=== PATIENT | female | born 1960 | race Caucasian/White ===

== ENCOUNTER 2017-01-29 15:58 | Emergency (ER) | payer SELFPAY ==
[~2017-01-29] VITALS: Ht 172.7 cm; Wt 74.8 kg
[2017-01-29] MEDS ORDERED: RT-ALBUTEROL SULF 2.5 MG/3 ML PRE-MIX VIAL ONE (16:02)
[2017-01-29] MEDS ORDERED: RT-ALBUTEROL/IPRATROPIUM 3 ML (DUONEB) VIAL ONE (16:02)
[2017-01-29] MEDS ORDERED: NS IV 1000 ML 1,000 ML IV ONE ×2 (16:13→16:51)
--- NOTE | 2017-01-29 16:13 | ED Neurological Problem ---
General Stated Complaint: UNRESPONSIVE Source: patient, EMS Exam Limitations: clinical condition (HÉCTOR FISHMAN) History of Present Illness Time seen by provider: 15:59 Initial Comments Patient presents to ER by EMS with a chief complaint that she was found down by family. Last time she was in contact with family was approximately 2130 yesterday by text message. She did not come to work this morning at 8:00 so the local law enforcement was called to do a welfare check on her. When EMS arrived they said the patient was down on the floor beside her bed with a lot of family in commotion in the house so they scooped her up and took her up some more related work on her. They were told by family that they thought she might of overdosed on some of her medications possibly include trazodone. They gave her 2 mg Narcan with no response. Her blood pressure was in the 80 systolic and heart rate in the 60s and satting in the upper 80s so they are aside her with rocuronium and Versed. They tried putting on oral pharyngeal airway and but the patient was biting down hard. EMS reported her pupils were pinpoint and fixed and she was not responding to painful stimuli. They've got 1 L of normal saline put in her and her blood pressure is 100 systolic now and her sats are 100% with a heart rate of 70s to 80s. Discussed the case with the family and the sons, brother and 3 sisters present who stated the patient had a lot of problems with depression and has a gambling disorder which has landed her in a great deal of that. She has relied on her family to be billed up multiple times and because of this this is lead to an argument about money which led to a lawsuit against one of her sisters. The patient has talked off and on about suicide for the past year according to the sisters. They have try to get her help but she is been resistant. They deny that she has recently been acting sick with any fevers chills or productive cough. She does smoke about 1 and a half packs of cigarettes a day. (HÉCTOR FISHMAN) Allergies and Home Medications Allergies Coded Allergies: Penicillins (Verified Allergy, Unknown, 01/29/17) Constitutional: see HPI (unable to obtain a meaningful review of systems secondary to the patient being orotracheally intubated) (HÉCTOR FISHMAN) Past Ixizlhh-Gyumzn-Tafdpr Hx Patient Social History Smoking Status: Current Everyday Smoker Type Used: Cigarettes (1.5 ppd) Recent Foreign Travel: No Contact w/Someone Who Travel: No (HÉCTOR FISHMAN) Physical Exam Vital Signs Vital Sign - Last 12Hours 01/29/17 01/29/17 01/29/17 16:15 16:24 17:40 Temp 96.1 Pulse 93 Resp 15 B/P (MAP) 75/58 Pulse Ox 100 O2 Delivery Mechanical Ventilator FiO2 100 (DARIN ALVARENGA APRN) Vital Signs Capillary Refill : (HÉCTOR FISHMAN) General Appearance: severe distress (orotracheally intubated and ventilated and nonresponsive to even noxious stimuli.) HEENT: PERRL/EOMI, normal ENT inspection, TMs normal, pharynx normal (ET tube at 22 cm at the teeth) Neck: non-tender, supple, normal inspection Respiratory: other (she has a lot of wheezing bilaterally and no breathing over the vent. Since settings are 12 breaths per minute, 400 mL tidal volume, PEEP of 5, FiO2 of 70%.) Cardiovascular: normal peripheral pulses, regular rate, rhythm, no edema, no murmur Peripheral Pulses: 1+ Dorsalis Pedis (R), 1+ Left Dors-Pedis (L), 1+ Radial Pulses (R), 1+ Radial Pulses (L) Gastrointestinal: normal bowel sounds, soft, no organomegaly Extremities: normal inspection, no pedal edema, normal capillary refill Neurologic/Psychiatric: other (Sada Coma Scale 3T) Skin: normal color, warm/dry (HÉCTOR FISHMAN) Focused Exam Evaluation Lactate Level Laboratory Tests 01/29/17 17:20: Lactic Acid Level 3.98*H (DARIN ALVARENGA APRN) Time of Focused Exam: 19:34 Respiratory: No Accessory Muscle Use (orotracheally intubated at 16 rate with tidal volume of 550 cc and a PEEP of 7 cm water pressure), Rhonci (bilateral) Cardiovascular: Regular Rate, Rhythm, No Edema, No Murmur Capillary Refill: Less Than 3 Seconds Peripheral Pulses: 2+ Dorsalis Pedis (R), 2+ Left Dors-Pedis (L), 2+ Radial Pulses (R), 2+ Radial Pulses (L) Skin: normal color, warm/dry (HÉCTOR FISHMAN) Lactic Acid Level Laboratory Tests Test 01/29/17 17:20 Lactic Acid Level 3.98 MMOL/L (0.50-2.00) *H (DARIN ALVARENGA APRN) Progress/Results/Core Measures Results/Orders Lab Results Laboratory Tests Test 01/29/17 16:07 01/29/17 16:17 01/29/17 16:50 01/29/17 17:20 Range/Units White Blood Count 13.4 H 4.3-11.0 10^3/uL Red Blood Count 4.25 L 4.35-5.85 10^6/uL Hemoglobin 13.3 11.5-16.0 G/DL Hematocrit 42 35-52 % Mean Corpuscular Volume 99 80-99 FL Mean Corpuscular Hemoglobin 31 25-34 PG Mean Corpuscular Hemoglobin Concent 32 32-36 G/DL Red Cell Distribution Width 13.8 10.0-14.5 % Platelet Count 325 130-400 10^3/uL Mean Platelet Volume 8.8 7.4-10.4 FL Neutrophils (%) (Auto) 81 H 42-75 % Lymphocytes (%) (Auto) 12 12-44 % Monocytes (%) (Auto) 7 0-12 % Eosinophils (%) (Auto) 0 0-10 % Basophils (%) (Auto) 0 0-10 % Neutrophils # (Auto) 10.9 H 1.8-7.8 X 10^3 Lymphocytes # (Auto) 1.6 1.0-4.0 X 10^3 Monocytes # (Auto) 0.9 0.0-1.0 X 10^3 Eosinophils # (Auto) 0.0 0.0-0.3 10^3/uL Basophils # (Auto) 0.0 0.0-0.1 10^3/uL Prothrombin Time 13.5 12.2-14.7 SEC INR Comment 1.0 0.8-1.4 Activated Partial Thromboplast Time 27 24-35 SEC D-Dimer 0.71 H 0.00-0.49 UG/ML Sodium Level 140 135-145 MMOL/L Potassium Level 4.6 3.6-5.0 MMOL/L Chloride Level 103 98-107 MMOL/L Carbon Dioxide Level 26 21-32 MMOL/L Anion Gap 11 5-14 MMOL/L Blood Urea Nitrogen 17 7-18 MG/DL Creatinine 2.05 H 0.60-1.30 MG/DL Estimat Glomerular Filtration Rate 25 BUN/Creatinine Ratio 8 Glucose Level 138 H 70-105 MG/DL Calcium Level 8.4 L 8.5-10.1 MG/DL Phosphorus Level 9.6 H 2.3-4.7 MG/DL Magnesium Level 2.4 1.8-2.4 MG/DL Total Bilirubin 0.3 0.1-1.0 MG/DL Aspartate Amino Transf (AST/SGOT) 128 H 5-34 U/L Alanine Aminotransferase (ALT/SGPT) 68 H 0-55 U/L Alkaline Phosphatase 73 40-136 U/L Ammonia 20 11-32 UMOL/L Troponin I < 0.30 <0.30 NG/ML Total Protein 6.9 6.4-8.2 GM/DL Albumin 4.2 3.2-4.5 GM/DL Lipase 49 8-78 U/L Salicylates Level < 5.0 L 5.0-20.0 MG/DL Acetaminophen Level < 10 L 10-30 UG/ML Serum Alcohol < 10 <10 MG/DL Urine Color YELLOW Urine Clarity SLIGHTLY CLOUDY Urine pH 5 5-9 Urine Specific [place] 1.015 L 1.016-1.022 Urine Protein 2+ H NEGATIVE Urine Glucose (UA) 2+ H NEGATIVE Urine Ketones NEGATIVE NEGATIVE Urine Nitrite NEGATIVE NEGATIVE Urine Bilirubin NEGATIVE NEGATIVE Urine Urobilinogen NORMAL NORMAL MG/DL Urine Leukocyte Esterase NEGATIVE NEGATIVE Urine RBC (Auto) 3+ H NEGATIVE Urine RBC 5-10 H /HPF Urine WBC NONE /HPF Urine Squamous Epithelial Cells 2-5 /HPF Urine Crystals PRESENT H /LPF Urine Amorphous Sediment MOD KARLOS URATES H /LPF Urine Bacteria NONE /HPF Urine Casts NONE /LPF Urine Mucus NEGATIVE /LPF Urine Culture Indicated NO Urine Opiates Screen POSITIVE H NEGATIVE Urine Oxycodone Screen NEGATIVE NEGATIVE Urine Methadone Screen NEGATIVE NEGATIVE Urine Propoxyphene Screen NEGATIVE NEGATIVE Urine Barbiturates Screen NEGATIVE NEGATIVE Ur Tricyclic Antidepressants Screen NEGATIVE NEGATIVE Urine Phencyclidine Screen NEGATIVE NEGATIVE Urine Amphetamines Screen NEGATIVE NEGATIVE Urine Methamphetamines Screen NEGATIVE NEGATIVE Urine Benzodiazepines Screen POSITIVE H NEGATIVE Urine Cocaine Screen NEGATIVE NEGATIVE Urine Cannabinoids Screen NEGATIVE NEGATIVE Blood Gas Puncture Site RT. BRACHIAL Blood Gas Patient Temperature 96.1 Arterial Blood pH 7.13 *L 7.37-7.43 Arterial Blood Partial Pressure CO2 57 H 35-45 MMHG Arterial Blood Partial Pressure O2 53 L 79-93 MMHG Arterial Blood HCO3 19 L 23-27 MMOL/L Arterial Blood Total CO2 20.6 L 21.0-31.0 MMOL/L Arterial Blood Oxygen Saturation 91 L 94-100 % Arterial Blood Base Excess -9.1 L -2.5-2.5 MMOL/L Paddy Test NA Carboxyhemoglobin 5.4 H 0.5-2.5 % Methemoglobin 0.5 0.4-1.5 % Blood Gas Ventilator Setting YES Blood Gas Inspired Oxygen 70% AC 450 12 PEEP 5 Lactic Acid Level 3.98 *H 0.50-2.00 MMOL/L Total Creatine Kinase 210 H 29-168 U/L Test 01/29/17 18:15 Range/Units Blood Gas Puncture Site LT RAD Blood Gas Patient Temperature 96.5 Arterial Blood pH 7.24 *L 7.37-7.43 Arterial Blood Partial Pressure CO2 56 H 35-45 MMHG Arterial Blood Partial Pressure O2 122 H 79-93 MMHG Arterial Blood HCO3 24 23-27 MMOL/L Arterial Blood Total CO2 25.5 21.0-31.0 MMOL/L Arterial Blood Oxygen Saturation 99 94-100 % Arterial Blood Base Excess -2.9 L -2.5-2.5 MMOL/L Paddy Test YES-POS Blood Gas Ventilator Setting YES Blood Gas Inspired Oxygen 40% (DARIN ALVARENGA APRN) Medications Given in ED Current Medications Medications Dose Ordered Sig/Sabino Route Start Time Stop Time Status Last Admin Dose Admin Albuterol Sulfate 2.5 mg STK-MED ONCE .ROUTE 01/29/17 16:02 01/29/17 16:10 DC 01/29/17 16:42 12.5 MG Albuterol/ Ipratropium 3 ml STK-MED ONCE .ROUTE 01/29/17 16:02 01/29/17 16:10 DC 01/29/17 16:41 3 ML Famotidine 20 mg ONCE ONCE IVP 01/29/17 17:00 01/29/17 17:01 DC 01/29/17 17:04 20 MG Methylprednisolone Sodium Succinate 125 mg ONCE ONCE IVP 01/29/17 16:30 01/29/17 16:31 DC 01/29/17 17:03 125 MG Sodium Bicarbonate 150 meq ONCE ONCE IV 01/29/17 16:45 01/29/17 16:46 DC 01/29/17 17:04 150 MEQ Sodium Chloride 1,000 ml @ 0 mls/hr Q0M ONCE IV 01/29/17 16:13 01/29/17 16:17 DC 01/29/17 16:35 999 MLS/HR Sodium Chloride 1,000 ml @ 0 mls/hr Q0M ONCE IV 01/29/17 16:51 01/29/17 16:53 DC 01/29/17 17:05 0 MLS/HR (DARIN ALVARENGA APRN) Vital Signs/I&O Vital Sign - Last 12Hours 01/29/17 01/29/17 01/29/17 01/29/17 16:15 16:24 16:36 17:18 Temp 96.1 Pulse 93 74 Resp 15 20 B/P (MAP) 75/58 Pulse Ox 100 100 100 FiO2 100 70 80 01/29/17 17:40 Temp 97.0 Pulse 95 Resp 15 B/P (MAP) 126/99 Pulse Ox 97 O2 Delivery Mechanical Ventilator Intake and Output 01/30/17 00:00 Intake Total 1100 ml Balance 1100 ml (DARIN ALVARENGA APRN) Progress Note #1: Time: 17:02 Progress Note We advance the NG tube about 8 cm which gave us copious amounts of return. The return is dark brown coffee-ground emesis. We gave her some Pepcid IV 20 mg. We have given the bicarbonate per recommendations from poison control. Her EKG once she got here showed a QTC above 500 so we gave HER-2 grams of magnesium. We will keep her pressures up okay with fluids a total of 3 L so far. The lowest her map got was about 55-60 briefly however it is now 119/89. I have ordered the norepinephrine but we have not initiated it yet. I have also ordered the Versed at the lowest dose as a drip for sedation but she has not needed it yet. We'll go ahead and start the Versed anyways. She is not bucking the vent and has no response to noxious stimuli. It's been about an hour since application of rock urogram and intubation so she could still be paralyzed. Her salicylates and sedimentation and alcohol levels were all negative. It is possible that this is a combination of the tramadol, morphine, Xanax and trazodone overdose. Son states that she did have multiple bottles of trazodone stored up in her night stand because she has not taking them very routinely. We have been dosing her off a estimated weight of 150 pounds or 68 kg. I spoke to the family and updated them. We'll go ahead and get a CT of her abdomen pelvis without contrast given her coffee-ground gastric secretions. We'll have to hold off on the CTA looking for the possibility of a PE. She has no history of clots. She has been satting just fine since she got here and I think that the reason her sats were low when EMS arrived was due to respiratory failure secondary to ingestion so a pulmonary embolism falls even lower on the differential. I will hold off doing any kind of anticoagulation given the very real looking GI bleed versus the less likely possibility of PE. Progress Note #2: Time: 17:16 Progress Note Patient is hypoxic on the ABG with a mixed respiratory acidosis and metabolic acidosis. It is likely that we are under ventilating her and her metabolic acidosis is or organic overdose root problem. We're going to increase her tidal volume from 450-500 and increase her rest burst from 12-15. We will raise her FiO2 from 70% up to 80%. We'll repeat an ABG in 30 minutes. I am also concerned that her poor oxygenation may not just be due to inadequate ventilation but may also reflect a possible V/Q mismatch. Her A-a gradient is 372 which is significantly elevated and makes things like PE or shots much more likely. Patient GFR is 25 and this will preclude use of a CTA to rule out or in a pulmonary and pleasant. She is not oxygenating like I would expect given what we are getting her so we will continue to work on her through the ventilator but I feel this time despite her brown secretions from her GI tract we should go ahead and treat her presumptively as though she is having a pulmonary and was him with IV heparin drip and I will type and screen her and we can replace blood if we have to potential GI bleed is trumped by a pulmonary embolism. Progress Note #3: Time: 17:50 Progress Note Met hemoglobin is ordered alongside a carboxyhemoglobin for reasons why she is not oxygenating but has good sats. She is having rhonchi on breath sounds however after her hour-long albuterol treatment her wheezing is gone. We suctioned her airway and obtain the same copious dark brown coffee-ground gastric secretions that are coming out of her NG tube. This now gives me a reason for why she is not oxygenating well so are going to hold off giving her the heparin drip at this time. It does not rule out a PE but makes me want to risk anticoagulation lasts. Heparin has not been started at this time. Progress Note #4: Time: 18:11 Progress Note Met hemoglobin is normal and carboxyhemoglobin would be consistent with a smoker 's 1-1/2+ packs a day. Repeat EKG after the magnesium and still shows a QTC of 535 ms and a QRS of 102 similar to prior to the bicarbonate being given. Progress Note #5: Time: 18:46 Progress Note Review the ABG she still and a respiratory acidosis although it has improved and her metabolic acidosis as closed since the addition of bicarbonate. We will increase her respiratory rate from 15-16 and her tidal volume from 500-550 to try and give her a little more ventilation. We'll keep repeat at 7 and her FiO2 of 40%. She is satting well and has a PaO2 above 100. Patient is a little more alert and is responding yes or no by shaking her head to some questions so we' ll increase her sedation. We'll also add a fentanyl drip back as the ride in the back of an ambulance will be uncomfortable as well as being intubated. We will titrate her sedation to a rasp score of -2 to -3. (HÉCTOR FISHMAN) ECG Initial ECG Impression Date: Jan 29, 2017 Initial ECG Impression Time: 15:39 Initial ECG Rate: 99 Initial ECG Rhythm: S.Tach Initial ECG Intervals: QRS (102) Initial ECG Intervals QTC is 456 and the QRS was 102 ms. Initial ECG Impression: Nonspecific Changes Initial ECG Comparisson: No Previous ECG Available Comment No ST elevation or depression. EKG #1: EKG Time: 16:42 Rate: 92 Rhythm: Normal Sinus Intervals: QT (530) ECG Comparisson: Changed ECG Impression: Nonspecific Changes Comment No ST elevation or depression however the QTC is not prolonged above 500. EKG #2: EKG Time: 18:06 Rate: 92 Rhythm: Normal Sinus Intervals: QT (535 ms) Intervals QRS 102 ms ECG Comparisson: Unchanged ECG Impression: Normal, Nonspecific Changes Comment No changes compared to last. (HÉCTOR FISHMAN) Diagnostic Imaging Diagonstic Imaging: Xray Plain Films/CT/US/NM/MRI: chest Comments NAME: LIZETH FELIPE [facility] REC#: [id number] PT STATUS: REG ER : 1960 PHYSICIAN: HÉCTOR FISHMAN MD ADMIT DATE: 01/29/17/ER Draft Date of Exam:01/29/17 CHEST 1 VIEW, AP/PA ONLY INDICATION: Unresponsive patient, intubation. EXAMINATION: Frontal chest was obtained at 4:23 p.m. COMPARISON: 03/25/08. FINDINGS: Heart is mildly enlarged. There are chronic appearing increased interstitial markings. There is no acute infiltrate, pneumothorax or pleural fluid. ET tube tip overlies the mid trachea. NG tube tip is slightly beyond the GE junction and should be advanced. IMPRESSION: Cardiomegaly and mild chronic appearing increased interstitial markings. ET tube overlies the mid trachea in good position. The NG tube tip is slightly beyond the GE junction and should be advanced. Dictated on workstation # [id number] Dict: 01/29/17 1632 Trans: 01/29/17 1641 [facility] [id number] Interpreted by: NAVEED GUTIERREZ MD Electronically signed by: Reviewed: Reviewed by Me Diagonstic Imaging: CT Plain Films/CT/US/NM/MRI: chest (without), abdomen, pelvis Comments She has emphysematous bleb disease in the lungs without any infiltrate or obvious evidence of aspiration. He has diverticulosis in the abdomen without diverticulitis. Some fluid but no free air. There is no inflammation and the other organ systems are thus far unremarkable on first exam. Awaiting over read by radiology. [facility]. [place], [place] NAME: LIZETH FELIPE [facility] REC#: [id number] PT STATUS: REG ER : 1960 PHYSICIAN: HÉCTOR FISHMAN MD ADMIT DATE: 01/29/17/ER Draft Date of Exam:01/29/17 CT CHEST/ABDOMEN/PELVIS WO PROCEDURE: CT chest, abdomen, and pelvis without contrast. TECHNIQUE: Multiple contiguous axial images were obtained through the chest, abdomen, and pelvis without the use of intravenous contrast. INDICATION: 56-year-old female presents to the ER unresponsive with low O2 saturation. COMPARISON: None. FINDINGS: There is no evidence of axillary adenopathy. There is also no evidence of hilar or mediastinal adenopathy; however, assessment of the mediastinum is limited due to lack of IV contrast. Cardiac contour is normal. Patient has been intubated with ET tube tip in the trachea at the level of the clavicles. NG tube extends into the gastric body. The thoracic aortic contour is normal with a few nonaneurysmal calcifications present. Lungs show COPD with chronic interstitial changes. There are some apical bullous emphysematous changes. An 8 mm nodule is seen in the superior aspect of the right upper lobe. There is also a 7 mm nodule also in the upper lobe more medially adjacent to the right paratracheal region. There are chronic groundglass-type opacities in both lungs suggesting chronic interstitial lung disease. Some minimal subpleural atelectatic infiltrates are seen most likely dependent in nature. Liver shows uniform attenuation. There is trace perihepatic ascites. Gallbladder shows pericholecystic fluid and some wall thickening possibly associated with hepatic dysfunction. Spleen and GE junction are normal. Stomach and duodenal sweep are unremarkable. Pancreas shows sharp margins. Adrenals are normal. Kidneys appear normal in size, position and contour. There is a minimal perinephric stranding. There is no evidence of hydronephrosis or hydroureter. Both ureters are seen intermittently through their course. Bladder is decompressed by a Perry catheter. Uterus and adnexa appear age-appropriate. Nonopacified loops of small bowel are normal. Few shoddy benign-appearing mesenteric nodes are seen. Appendix is normal. Large bowel is mostly decompressed in the ascending segment. There may be an element of mild ascending segment mucosal thickening. There is colonic diverticular disease throughout the colon with sigmoid diverticulosis but no evidence of acute diverticulitis. There is no free air, free fluid or evidence of adenopathy. Few nonaneurysmal aortic calcifications are seen. Degenerative changes in the lumbosacral spine appear age-appropriate. IMPRESSION: 1. Two separate right upper lobe lung nodules as described above. Followup in 1-2 months is recommended. 2. Diffuse chronic interstitial lung disease with diffuse haziness in both lungs. 3. There are bullous emphysematous changes in both lungs. 4. Trace perihepatic ascites. 5. Pericholecystic fluid with some gallbladder wall thickening may be associated with hepatic dysfunction rather than cholecystitis. Correlation with ultrasound is recommended. 6. Colonic diverticular disease with sigmoid diverticulosis but no evidence of acute diverticulitis. Additional nonemergent findings as described above. Dictated on workstation # [id number] Dict: 01/29/171808 Trans: 01/29/17 1827 [facility] [id number] Interpreted by: DOV LOPEZ MD Electronically signed by: Reviewed: Reviewed by Me Diagonstic Imaging: CT Plain Films/CT/US/NM/MRI: head Comments No evidence of a bleed, mass, mass effect, tumor, infection or osseous abnormality. [facility]. [place], [place] NAME: LIZETH FELIPE [facility] REC#: [id number] PT STATUS: REG ER : 1960 PHYSICIAN: HÉCTOR FISHMAN MD ADMIT DATE: 01/29/17/ER Draft Date of Exam:01/29/17 CT HEAD WO PROCEDURE: CT head without contrast. TECHNIQUE: Multiple contiguous axial images were obtained through the brain without the use of intravenous contrast. INDICATION: 56-year-old female presents to the ER unresponsive. COMPARISONS: None. FINDINGS: Midline structures are not displaced. Lateral, third, and fourth ventricles are normal in size, shape, and anatomic position. There is no evidence of mass, mass effect, hydrocephalus, or hemorrhage. Galindo-white differentiation is normal. There is no sulcal effacement. 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 There are no abnormal extra-axial fluid collections or hemorrhage. Basilar cisterns appear normal. Sinuses, orbits, and mastoid air cells are unremarkable. Bone windows show no calvarial changes. IMPRESSION: Unremarkable nonenhanced CT brain. Dictated on workstation # [id number] Dict: 01/29/171807 Trans: 01/29/17 1811 [id number] Interpreted by: DOV LOPEZ MD Electronically signed by: Reviewed: Reviewed by Me (HÉCTOR FISHMAN) Consults Consults : Consults Notes poison control 1630: Discussed the case at length with the poison control and they recommend Bin on her QRS prolongation to go ahead and give the bicarbonate bolus 2-3 mg/kg. He also recommend that if we need pressure support and fluids or not doing it to use dopamine or norepinephrine. Reviewed EKG and what labs were available time and she will call back later more labs are available. She also recommends that if the QTc gets above 500 we should consider using 1-2 g of magnesium. (HÉCTOR FISHMAN) Critical Care Note Critical Care Start Time: 16:10 Stop Time: 19:10 Total Time (minutes) 3 hours (HÉCTOR FISHMAN) Departure Communication (Admissions) Progress Notes [place] from poison control called. She would like to add a total CK to the patient's lab work given the elevated liver enzymes. (DARIN ALVARENGA [employer]) Impression Impression: Primary Impression: Intentional overdose of drug in tablet form Additional Impressions: Aspiration pneumonia Qualified Codes: J69.0 - Pneumonitis due to inhalation of food and vomit Endotracheally intubated Acute kidney injury Encephalopathy acute Hypocalcemia Respiratory acidosis Metabolic acidosis due to ingestion of drugs or chemicals Suicide attempt by drug ingestion Qualified Codes: T50.902A - Poisoning by unspecified drugs, medicaments and biological substances, intentional self-harm, initial encounter Acute respiratory failure with hypoxia and hypercarbia Lactic acid acidosis Transaminitis Hyperphosphatemia Prolonged Q-T interval on ECG Disposition: 02 XFER SHT-TRM HOSP Condition: Stable Transfer Time Spoke to Accepting Phy: 18:14 Transfer Progress Notes Jo Arellano Triage: Salt Machine Operator: Addi; Discussed the case at length. He agrees this looks like suicidal intention with intentional overdose and aspiration pneumonia. He has asked that we get an affidavit signed by the family the fact she is simply suicidal to help him. He is willing to take the patient whenever we send her. We discussed vitals, oxygenation, ABGs, EKGs, CT, lab, urine, history. 185: We have a bed and nursing report has been called. Dispatch is been called for [facility] transport. 1902 EMS arrived for transport. Transfer Time: 19:10 Transfer Facility: [facility] Method of Transfer: EMS (HÉCTOR FISHMAN) Departure-Patient Inst. Referrals: KELSEA RAE MD (PCP/Family) Primary Care Physician Copy Copies To 1: KELSEA RAE MD, TITUS J Jan 29, 2017 16:13 DARIN ALVARENGA APRN Jan 29, 2017 19:23
[2017-01-29 16:15] VITALS: BP 104/75
[2017-01-29 16:22] LABS: BASOPHILS % (AUTO) 0 % (0-10); EOSINOPHILS % (AUTO) 0 % (0-10); LYMPHOCYTES # (AUTO) 1.6 X 10^3 (1.0-4.0); LYMPHOCYTES % (AUTO) 12 % (12-44); MEAN CORPUSCULAR HEMOGLOBIN 31 PG (25-34); MEAN CORPUSCULAR HGB CONC 32 G/DL (32-36); MEAN CORPUSCULAR VOLUME 99 FL (80-99); MEAN PLATELET VOLUME 8.8 FL (7.4-10.4); MONOCYTES # (AUTO) 0.9 X 10^3 (0.0-1.0); MONOCYTES % (AUTO) 7 % (0-12); NEUTROPHILS # (AUTO) 10.9 X 10^3 (1.8-7.8); NEUTROPHILS % (AUTO) 81 % (42-75); PLATELET COUNT 325 10^3/uL (130-400); RED BLOOD COUNT 4.25 10^6/uL (4.35-5.85); RED CELL DISTRIBUTION WIDTH 13.8 % (10.0-14.5); WHITE BLOOD COUNT 13.4 10^3/uL (4.3-11.0)
[2017-01-29] MEDS ORDERED: RT-IPRATROPIUM (ATROVENT) 0.5MG/2.5ML AMP IH ONE (16:30)
[2017-01-29] MEDS ORDERED: methylPREDNISolone 125 MG (Solu-MEDROL) VIAL IVP ONE (16:30)
[2017-01-29] MEDS ORDERED: RT-ALBUTEROL/IPRATROPIUM 3 ML (DUONEB) VIAL INH ONE (16:30)
[2017-01-29 16:34] LABS: PROTHROMBIN TIME PATIENT 13.5 SEC (12.2-14.7)
[2017-01-29 16:35] LABS: BILIRUBIN,URINE NEGATIVE (NEGATIVE); KETONES,URINE NEGATIVE (NEGATIVE); LEUKOCYTE ESTERASE ,URINE NEGATIVE (NEGATIVE); NITRITE,URINE NEGATIVE (NEGATIVE); PH,URINE 5 (5-9); PROTEIN,URINE 2+ (NEGATIVE); UROBILINOGEN,URINE NORMAL (NORMAL)
--- NOTE | 2017-01-29 16:42 | Diagnostic Imaging Report ---
INDICATION: Unresponsive patient, intubation. EXAMINATION: Frontal chest was obtained at 4:23 p.m. COMPARISON: 03/25/08. FINDINGS: Heart is mildly enlarged. There are chronic appearing increased interstitial markings. There is no acute infiltrate, pneumothorax or pleural fluid. ET tube tip overlies the mid trachea. NG tube tip is slightly beyond the GE junction and should be advanced. IMPRESSION: Cardiomegaly and mild chronic appearing increased interstitial markings. ET tube overlies the mid trachea in good position. The NG tube tip is slightly beyond the GE junction and should be advanced. Dictated by: Dictated on workstation # [id number]
[2017-01-29] MEDS ORDERED: SODIUM BICARB 8.4% 50 MEQ/50 ML (ABBOTT) SYR IV ONE (16:45)
[2017-01-29] MEDS ORDERED: NOREPINEPHRINE 4 MG in D5W 250 ML (IVPB) 250 ML IV SCH (16:45)
[2017-01-29 16:49] LABS: ACETAMINOPHEN < 10 UG/ML (10-30); ALANINE AMINOTRANSFERASE 68 U/L (0-55); ALBUMIN 4.2 GM/DL (3.2-4.5); ALCOHOL < 10 MG/DL (<10); ANION GAP 11 MMOL/L (5-14); ASPARTATE AMINO TRANSFERASE 128 U/L (5-34); BILIRUBIN,TOTAL 0.3 MG/DL (0.1-1.0); BLOOD UREA NITROGEN 17 MG/DL (7-18); BUN/CREATININE RATIO 8; CALCIUM 8.4 MG/DL (8.5-10.1); CARBON DIOXIDE 26 MMOL/L (21-32); CHLORIDE 103 MMOL/L (98-107); CREATININE SERUM 2.05 MG/DL (0.60-1.30); GFR ESTIMATED 25; GLUCOSE 138 MG/DL (70-105); LIPASE 49 U/L (8-78); MAGNESIUM 2.4 MG/DL (1.8-2.4); PHOSPHORUS 9.6 MG/DL (2.3-4.7); POTASSIUM 4.6 MMOL/L (3.6-5.0); SODIUM 140 MMOL/L (135-145); TOTAL PROTEIN 6.9 GM/DL (6.4-8.2)
[2017-01-29] MEDS ORDERED: MAGNESIUM 1 GM/100 ML IVPB 100 ML IV STA (16:49)
[2017-01-29 16:55] LABS: TROPONIN I < 0.30 NG/ML (<0.30)
[2017-01-29] MEDS ORDERED: FAMOTIDINE 20MG/2ML IV (PEPCID) IVP ONE (17:00)
[2017-01-29 17:05] LABS: ABG BASE EXCESS -9.1 MMOL/L (-2.5-2.5); ABG HCO3 19 MMOL/L (23-27); ABG OXYGEN SATURATION 91 % (94-100); ABG PCO2 57 MMHG (35-45); ABG PO2 53 MMHG (79-93); ABG TCO2 20.6 MMOL/L (21.0-31.0)
[2017-01-29 17:07] LABS: ABG PH 7.13 (7.37-7.43); PATIENT TEMP 96.1
[2017-01-29] MEDS ORDERED: MIDAZOLAM INJECTION FOR DRIPS 50 MG in NS (IVPB) 90 ML IV SCH (17:15)
[2017-01-29] MEDS ORDERED: HEParin DRIP 25000 UNIT/500ML 500 ML IV ONE (17:28)
[2017-01-29] MEDS ORDERED: HEParin 1000 UNIT/ML (10ML VIAL) FOR BOLUS IV ONE (17:30)
[2017-01-29 17:48] LABS: AMMONIA 20 UMOL/L (11-32)
--- NOTE | 2017-01-29 18:11 | Diagnostic Imaging Report ---
PROCEDURE: CT head without contrast. TECHNIQUE: Multiple contiguous axial images were obtained through the brain without the use of intravenous contrast. INDICATION: 56-year-old female presents to the ER unresponsive. COMPARISONS: None. FINDINGS: Midline structures are not displaced. Lateral, third, and fourth ventricles are normal in size, shape, and anatomic position. There is no evidence of mass, mass effect, hydrocephalus, or hemorrhage. Galindo-white differentiation is normal. There is no sulcal effacement. 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 There are no abnormal extra-axial fluid collections or hemorrhage. Basilar cisterns appear normal. Sinuses, orbits, and mastoid air cells are unremarkable. Bone windows show no calvarial changes. IMPRESSION: Unremarkable nonenhanced CT brain. Dictated by: Dictated on workstation # [id number]
[2017-01-29 18:15] VITALS: BP 112/85
--- NOTE | 2017-01-29 18:27 | Diagnostic Imaging Report ---
PROCEDURE: CT chest, abdomen, and pelvis without contrast. TECHNIQUE: Multiple contiguous axial images were obtained through the chest, abdomen, and pelvis without the use of intravenous contrast. INDICATION: 56-year-old female presents to the ER unresponsive with low O2 saturation. COMPARISON: None. FINDINGS: There is no evidence of axillary adenopathy. There is also no evidence of hilar or mediastinal adenopathy; however, assessment of the mediastinum is limited due to lack of IV contrast. Cardiac contour is normal. Patient has been intubated with ET tube tip in the trachea at the level of the clavicles. NG tube extends into the gastric body. The thoracic aortic contour is normal with a few nonaneurysmal calcifications present. Lungs show COPD with chronic interstitial changes. There are some apical bullous emphysematous changes. An 8 mm nodule is seen in the superior aspect of the right upper lobe. There is also a 7 mm nodule also in the upper lobe more medially adjacent to the right paratracheal region. There are chronic groundglass-type opacities in both lungs suggesting chronic interstitial lung disease. Some minimal subpleural atelectatic infiltrates are seen most likely dependent in nature. Liver shows uniform attenuation. There is trace perihepatic ascites. Gallbladder shows pericholecystic fluid and some wall thickening possibly associated with hepatic dysfunction. Spleen and GE junction are normal. Stomach and duodenal sweep are unremarkable. Pancreas shows sharp margins. Adrenals are normal. Kidneys appear normal in size, position and contour. There is a minimal perinephric stranding. There is no evidence of hydronephrosis or hydroureter. Both ureters are seen intermittently through their course. Bladder is decompressed by a Perry catheter. Uterus and adnexa appear age-appropriate. Nonopacified loops of small bowel are normal. Few shoddy benign-appearing mesenteric nodes are seen. Appendix is normal. Large bowel is mostly decompressed in the ascending segment. There may be an element of mild ascending segment mucosal thickening. There is colonic diverticular disease throughout the colon with sigmoid diverticulosis but no evidence of acute diverticulitis. There is no free air, free fluid or evidence of adenopathy. Few nonaneurysmal aortic calcifications are seen. Degenerative changes in the lumbosacral spine appear age-appropriate. IMPRESSION: 1. Two separate right upper lobe lung nodules as described above. Followup in 1-2 months is recommended. 2. Diffuse chronic interstitial lung disease with diffuse haziness in both lungs. 3. There are bullous emphysematous changes in both lungs. 4. Trace perihepatic ascites. 5. Pericholecystic fluid with some gallbladder wall thickening may be associated with hepatic dysfunction rather than cholecystitis. Correlation with ultrasound is recommended. 6. Colonic diverticular disease with sigmoid diverticulosis but no evidence of acute diverticulitis. Additional nonemergent findings as described above. Dictated by: Dictated on workstation # [id number]
[2017-01-29 18:30] LABS: ABG BASE EXCESS -2.9 MMOL/L (-2.5-2.5); ABG HCO3 24 MMOL/L (23-27); ABG OXYGEN SATURATION 99 % (94-100); ABG PCO2 56 MMHG (35-45); ABG PO2 122 MMHG (79-93); ABG TCO2 25.5 MMOL/L (21.0-31.0)
[2017-01-29 18:31] LABS: ABG PH 7.24 (7.37-7.43)
[2017-01-29 18:32] LABS: ALLENS TEST YES-POS; PATIENT TEMP 96.5
[2017-01-29] MEDS ORDERED: fentaNYL INJECTION 1,250 MCG in NS (IVPB) 225 ML IV SCH (19:00)
[2017-01-29] MEDS ORDERED: NS IV 1000 ML 1,000 ML ONE (19:00)
[2017-01-29] MEDS ORDERED: fentaNYL INJECTION 100 MCG/2 ML AMP IVP ONE (19:15)
[2017-01-29 19:26] VITALS: BP 118/81
== END 2017-01-29 19:26 | disposition short-term general hospital (02) ==
LOC: EDUNIT# 15:58 → ER 15:59
DX: J69.0 Pneumonitis due to inhalation of food and vomit (principal); N17.9 Acute kidney failure, unspecified; E87.2 Acidosis
CPT/HCPCS: 36415; 51702; 70450; 71010; 71250; 74176; 80053; 80306; 80320; 80329; 81000; 82140; 82375; 82550; 82805; 83050; 83605; 83690; 83735; 84100; 84484; 85025; 85379; 85610; 85730; 93005; 94002; 94640; 94799

== ENCOUNTER → 2017-09-29 | Outpatient (CLI) | payer OTHER ==
[~2017-09-29] MED LIST: RT-ALBUTEROL SULF 2.5 MG/3 ML PRE-MIX VIAL INH ONE; RT-ALBUTEROL SULF 2.5 MG/3 ML PRE-MIX VIAL ONE
== END ==
LOC: RT 15:33
PROVIDERS: ATTEND Internal Medicine
DX: Z02.71 Encounter for disability determination (principal)
CPT/HCPCS: 94060